=== PATIENT | male | born 1960 | race Caucasian/White ===

== ENCOUNTER 2018-09-21 18:34 | Emergency (ER) | payer OTHER ==
--- NOTE | 2018-09-21 18:54 | UC ---
Ear Complaint HPI - HPI Summary HPI Summary: 58 yo male presents with sinus pressure and b/l ear pressure. Says that left ear feels full and throbs with pain at times. Has a hx of cerumen impaction and has needed his ears irrigated in the past - thinks he needs this again today. Has been taking mucinex and sudafed with no relief. Denies fever, chills, cough , sore throat. - History of Current Complaint Stated Complaint: EAR ACHE Time Seen by Provider: 09/21/18 18:54 Hx Obtained From: Patient Onset/Duration: Gradual Onset Severity Initially: Mild Severity Currently: Mild Pain Intensity: 3 Pain Scale Used: 0-10 Numeric - Allergies/Home Medications Allergies/Adverse Reactions: Allergies Allergy/AdvReac Type Severity Reaction Status Date / Time Penicillins Allergy Hives Verified 09/21/18 19:01 Home Medications: Home Medications Pseudoephedrine HCl [Sudafed 12 Hour] 120 mg PO Q12HR PRN 09/21/18 [History Confirmed 09/21/18] guaiFENesin [Mucinex] 600 mg PO Q12HR PRN 09/21/18 [History Confirmed 09/21/18] PMH/Surg Hx/FS Hx/Imm Hx - Additional Past Medical History Additional PMH: None - Family History Known Family History: Positive: None - Social History Occupation: Employed Full-time Lives: With Family Alcohol Use: Occasionally Substance Use Type: None Smoking Status (MU): Never Smoked Tobacco Review of Systems All Other Systems Reviewed And Are Negative: Yes Constitutional: Positive: Negative Skin: Positive: Negative Eyes: Positive: Negative ENT: Positive: Ear Ache, Nasal Discharge, Sinus Congestion Respiratory: Positive: Negative Cardiovascular: Positive: Negative Gastrointestinal: Positive: Negative Neurovascular: Positive: Negative Neurological: Positive: Negative Psychological: Positive: Negative Physical Exam - Summary Physical Exam Summary: GENERAL: NAD. WDWN. No pain distress. SKIN: No rashes, sores, lesions, or open wounds. HEENT: Head: AT/NC Eyes: EOM intact. Conjunctiva clear without inflammation or discharge. Ears: Hearing grossly normal. TMs occluded by cerumen. S/P irrigation: Left TM with moderate erythema and bulging. No canal edema or drainage. Right TM WNL and intact. Nose: Nasal mucosa pink and moist. NTTP maxillary and frontal sinus. Throat: Posterior oropharynx without exudates, erythema, or tonsillar enlargement. Uvula midline. NECK: Supple. Nontender. No lymphadenopathy. CHEST: CTAB. No r/r/w. No accessory muscle use. Breathing comfortably and in no distress. CV: RRR. Without m/r/g. Pulses intact. Cap refill <2seconds NEURO: Alert. PSYCH: Age appropriate behavior. Triage Information Reviewed: Yes Vital Signs: Vital Signs: Temp Pulse Resp BP Pulse Ox 97.2 F 71 18 151/90 100 09/21/18 19:02 09/21/18 19:02 09/21/18 19:02 09/21/18 19:02 09/21/18 19:02 Vital Signs Reviewed: Yes Ear Complaint Course/Dx - Course Course Of Treatment: B/L ceruman impaction with successful disimpaction s/p flush. Left otitis media - Differential Dx/Diagnosis Provider Diagnosis: Cerumen impaction, Otitis media Discharge - Sign-Out/Discharge Documenting (check all that apply): Patient Departure All imaging exams completed and their final reports reviewed: No Studies - Discharge Plan Condition: Stable Disposition: HOME Prescriptions: Azithromycin TAB* [Zithromax TAB (Z-DANIEL) 250 mg #6 tabs] 2 tab PO .TODAY, THEN 1 DAILY #1 daniel Patient Education Materials: Ear Infection (ED) Referrals: No Primary Care Phys,NOPCP [Primary Care Provider] - Additional Instructions: If you develop a fever, shortness of breath, chest pain, new or worsening symptoms - please call your PCP or go to the ED. Your blood pressure was high at todays visit. Please see your primary provider within 4 weeks for recheck and re-evaluation. - Billing Disposition and Condition Condition: STABLE Disposition: Home
[2018-09-21 19:06] VITALS: BP 151/90
== END 2018-09-21 19:50 | disposition home or self-care (01) ==
LOC: UCEAST 18:34
DX: H61.23 Impacted cerumen, bilateral (principal); H66.92 Otitis media, unspecified, left ear; Z88.0 Allergy status to penicillin
CPT/HCPCS: 99202; G0463